=== PATIENT | female | born 1960 | race Caucasian/White ===

== ENCOUNTER 2016-06-14 05:52 | Day surgery (SDC) | payer BC ==
[~2016-06-14 05:52] MED LIST: AMLODIPINE-OLM1 EAC1 PO; HYDROCHLOROTHIA25 M1 PO; TRICOR48 M2 PO; VITAMIN D32000 UNI2 PO; ZOCOR20 M1 PO
== END 2016-06-14 15:25 ==
LOC: SRG 05:52 → SHSB 05:53 → ORW 09:53 → PACU 11:38 → SHSB 12:00
PROC: 0HQCXZZ Repair Left Upper Arm Skin, External Approach (ICD-10-PCS; principal; 2016-06-14)
PROC: 0XB Anatomical Regions, Upper Extremities, Excision (ICD-10-PCS; 2016-06-14)
DX: C43.62 Malignant melanoma of left upper limb, including shoulder (principal); I10 Essential (primary) hypertension; E78.00 Pure hypercholesterolemia, unspecified; Z80.1 Family history of malignant neoplasm of trachea, bronchus and lung; Z83.3 Family history of diabetes mellitus; Z79.899 Other long term (current) drug therapy
CPT/HCPCS: A9520; J0690; J1885; J2270; J7030